=== PATIENT | female | born 1980 | race Caucasian/White ===

== ENCOUNTER 2016-10-30 14:03 | Emergency (ER) | payer SELFPAY ==
--- NOTE | ~2016-10-30 | CR63 ---
[facility] A Service of [facility] RADIOLOGY TEXT RESULTS PATIENT: PATRICIA ZARATE LOCATION: SED : 84 UNIT #: [id number] AGE: [address]: Joanie Pinedo APRN SEX: F ORDER DR: [id number] [id number] E MR#: [id number] Acc #: [id number] NAME: PATRICIA ZARATE. : 1980 SEX: F STUDY DATE/TIME: 10/30/2016 14:12 UNIT: SED ROOM: STUDY DESCRIPTION: CR Chest 2 View Attending Physician: Joanie Pinedo A.P.R.N. Ordering Physician: Joanie Pinedo A.P.R.N. Primary Care Physician: Primary Care Physician No MEDICAL IMAGING REPORT This report is preliminary unless electronic signature is present. EXAM Chest x-ray 2 views HISTORY Cough, congestion, very tired for 5 days, smoker with a history of asthma. COMMENT 2 views of the chest reviewed. Comparison study 06/15/2016. No pleural effusion. Heart size normal. Small eventration of the right hemidiaphragm medially again seen. Interval worsening in the appearance of the lung parenchymal markings with some increase in the thickening of the peribronchovascular soft tissues to the right lower lobe to a lesser extent the left lower lobe. This would be consistent with asthma or bronchitis. There may be a small amount of airspace disease at the right base. No pneumothorax. IMPRESSION Increased thickening of the peribronchovascular soft tissues to the lower lobes right greater than left. This would be consistent with asthma and/or bronchitis. Concern for some patchy airspace disease at the right base when compared to the prior study. Clinical correlation and follow up is recommended to ensure complete resolution. Dictated by... Raysa Brand M.D. THIS IS AN ELECTRONICALLY VERIFIED REPORT Raysa Brand M.D. at 11/01/2016 7:45 AM FORREST/danae [facility] A Service of [facility] RADIOLOGY TEXT RESULTS PATIENT: PATRICIA ZARATE LOCATION: SED : 82 UNIT #: [id number] AGE: [address]: Joanie Pinedo APRN SEX: F ORDER DR: TD: 10/31/2016 13:30 JOB #: [id number] MEDICAL IMAGING REPORT
[~2016-10-30 14:03] MED LIST: FLEXERIL10 MG; NO MEDICATIONS; NORCO1 TAB 10/3 PO; ROBITUSSIN A-C S5 ML PO; VOLTAREN75 MG
[2016-10-30 14:10] LABS: INFLUENZA A NEG (NEG); INFLUENZA B NEG (NEG)
== END 2016-10-30 15:35 | disposition home or self-care (01) ==
LOC: SED 14:03
PROVIDERS: Nurse Practitioner
DX: J18.9 Pneumonia, unspecified organism (principal); J45.909 Unspecified asthma, uncomplicated; F17.200 Nicotine dependence, unspecified, uncomplicated; Z88.0 Allergy status to penicillin; Z79.899 Other long term (current) drug therapy
CPT/HCPCS: 71020; 84703; 87651; 87804; 94640; 99283